=== PATIENT | male | born 1955 | race Two or more races ===

== ENCOUNTER 2018-03-04 07:33 | Emergency (ER) | payer MEDICAID ==
[~2018-03-04] VITALS: Ht 170.2 cm; Wt 79.4 kg
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
[2018-03-04] MEDS ORDERED: IV NS 0.9% 1,000 ML BAG IV ONE (08:00)
[2018-03-04] MEDS ORDERED: LORAZEPAM INJ 2 MG/ML VIAL ONE (08:13)
[2018-03-04 08:17] LABS: BASOPHILS % (AUTO) 0.3 % (0.0-2.0); EOSINOPHILS % (AUTO) 0.1 % (0.0-6.0); HEMATOCRIT 41 % (39-51); HEMOGLOBIN 13.7 g/dL (13.5-17.5); LYMPHOCYTES # (AUTO) 0.9 /CMM (0.8-4.8); LYMPHOCYTES % (AUTO) 11.3 % (20.0-44.0); MEAN CORPUSCULAR HGB CONC 34 g/dl (31.0-36.0); MEAN CORPUSCULAR VOLUME 99 fL (80-96); MONOCYTES # (AUTO) 0.3 /CMM (0.1-1.30); MONOCYTES % (AUTO) 4.2 % (2.0-12.0); NEUTROPHILS # (AUTO) 6.4 /CMM (1.8-8.9); NEUTROPHILS % (AUTO) 84.1 % (43.0-81.0); PLATELET COUNT (AUTO) 248 /CMM (150-450); RDW COEFFICIENT OF VARIATION 13.5 (11.5-15.0); RED BLOOD CELL COUNT(AUTO) 4.11 MIL/uL (4.5-6.0); WHITE BLOOD COUNT (AUTO) 7.6 K/uL (4.3-11.0)
--- NOTE | 2018-03-04 08:19 | NUR ---
PT NOTED ACTIVELY SEIZING. MD AWARE. SEIZURE PRECATIONS MAINTAINED. PLACED ON NONREBREATHER MASK, MEDS GIVEN ORDERED. WILL MONITOR.
[2018-03-04 08:30] LABS: CALCIUM, SERUM 9.4 mg/dL (8.5-10.1); CREATININE 1.1 mg/dL (0.6-1.3); POTASSIUM 4.2 mmol/L (3.5-5.1)
[2018-03-04] MEDS ORDERED: LORAZEPAM INJ 2 MG/ML VIAL IV ONE (08:30)
[2018-03-04 08:35] LABS: ALBUMIN 4.5 g/dL (3.4-5.0); BILIRUBIN,DIRECT 0.1 mg/dL (0.0-0.2); BILIRUBIN,TOTAL 0.3 mg/dL (0.2-1.0); TOTAL PROTEIN, SERUM 8.2 g/dL (6.4-8.2)
[2018-03-04 08:37] LABS: TROPONIN I < 0.017 ng/mL (0.00-0.056)
[2018-03-04 08:40] LABS: INR 0.93 (0.87-1.13)
--- NOTE | 2018-03-04 08:45 | NUR ---
PT TAKEN TO CT.
[2018-03-04] MEDS ORDERED: ACETAMINOPHEN 650 MG/SUPP.RECT RC ONE ×2 (08:59→09:00)
[2018-03-04] MEDS ORDERED: CEFTRIAXONE 1GM BAG (ER ONLY) 1 GM/50 ML PIGGYBACK IV ONE (09:00)
[2018-03-04] MEDS ORDERED: IV NS 0.9% 500 ML IV ONE (09:00)
[2018-03-04] MEDS ORDERED: IV NS 0.9% 1,000 ML IV ONE (09:00)
--- NOTE | 2018-03-04 09:20 | NUR ---
LUMBAR PUNCTURE DONE AT BY DR. PICHARDO.
[2018-03-04] MEDS ORDERED: LIDOCAINE 1% INJ 50 ML MDV IJ ONE (09:22)
[2018-03-04 10:04] LABS: CSF GLUCOSE 67 mg/dL (40-70); CSF PROTEIN 46.3 mg/dL (15-45)
--- NOTE | 2018-03-04 10:53 | NUR ---
zenon LEYVA for transfer
[2018-03-04 11:18] LABS: APPEARANCE,URINE Clear (CLEAR); BILIRUBIN,URINE Negative (NEGATIVE); BLOOD, URINE Moderate Ery/uL (NEGATIVE); COLOR,URINE Yellow (YELLOW); KETONES,URINE Negative (NEGATIVE); LEUKOCYTE ESTERASE ,URINE Negative (NEGATIVE); NITRITE, URINE Negative (NEGATIVE); PROTEIN,URINE Trace mg/dl (NEGATIVE); UGLUCOSE Negative (NEGATIVE); UROBILINOGEN,URINE 0.2 EU/dL (0.2)
--- NOTE | 2018-03-04 11:45 | NUR ---
DR ELIZABETH FROM [place] CALLED ON THE PHONE WITH DR PICHARDO.
--- NOTE | 2018-03-04 11:58 | NUR ---
DR ELIZABETH FROM [place] CALLED BACK, REQUESTING A REPEAT LACTIC ACID. DR PICHARDO WAS INFORMED.
[2018-03-04 12:24] LABS: BACTERIA,URINE Rare /HPF (None Seen); RBC,URINE 0-2 /HPF (0-2); SQUAMOUS EPITHELIAL CELL,UR Few /HPF (None Seen); WBC,URINE 0-2 /HPF (0-3)
[2018-03-04] MEDS ORDERED: IBUPROFEN 600 MG TABLET PO ONE ×2 (13:00→13:17)
--- NOTE | 2018-03-04 13:18 | NUR ---
CALLED [facility] FOR AN UPDATE SPOKE WITH MELISSA, WE ARE STILL AWAITING BED PLACEMENT.
--- NOTE | 2018-03-04 14:37 | NUR ---
KARMEN MOLINA CALLED PATIENT WILL BE TX TO [facility] TO ROOM [id number] NUMBER TO CALL FOR REPORT DR BUSTILLO
--- NOTE | 2018-03-04 14:58 | NUR ---
REPORT GIVEN TO [id number] FOR TRANSPORT.
--- NOTE | 2018-03-04 15:00 | NUR ---
REPORT GIVEN TO FRANCINE ST FOR CONTINUITY OF CARE
[2018-03-04 15:01] VITALS: BP 132/68
== END 2018-03-04 15:08 | disposition short-term general hospital (02) ==
LOC: ER 07:35
DX: G40.909 Epilepsy, unspecified, not intractable, without status epilepticus (principal); R50.9 Fever, unspecified; E78.5 Hyperlipidemia, unspecified; I49.8 Other specified cardiac arrhythmias
CPT/HCPCS: 36415; 62270; 70450; 71045; 80048; 80076; 81001; 83605 ×3; 84484; 85025; 85730; 87040 ×2; 87070; 87086; 89051; 93005; 96365; 96375; 99291; A4606; A6402; J0696; J2060; J3490; J7030 ×2; J7040; Z7610; 81000-TC